=== PATIENT | male | born 1960 | race Caucasian/White ===

== ENCOUNTER 2022-12-17 09:59 | Day surgery (SDC) | payer OTHER, SELFPAY ==
[2022-12-13 14:27] VITALS: BMI 22.4
[2022-12-17] VITALS (7 sets, daily range): BP systolic 99–125; BP diastolic 67–92; PULSE 77–95; RESP 13–18; TEMP 36.4–37.2; O2SAT 92–100; BMI 22.4
--- NOTE | 2022-12-17 | DI.RAD.S_ITS ---
PROCEDURE: XR ANKLE LT MIN 3V INDICATIONS: LEFT ANKLE FRACTURE TECHNIQUE: 4 views of the ankle were acquired. COMPARISON: None. FINDINGS: Limited intraoperative fluoroscopic images of the left ankle demonstrate surgical fixation of distal fibular and tibial as well as soft tissue anchor across the distal syndesmosis. Alignment appears anatomic. IMPRESSION: Intraoperative fluoroscopic support for open reduction internal fixation of distal left ankle injury. No evidence for acute hardware complication. Dictated by: Bonilla Freeman M.D. on 12/17/2022 at 17:33 Approved by: Bonilla Freeman M.D. on 12/17/2022 at 17:35
[2022-12-17] MEDS: LACTATED RINGERS 1,000 ML 42 ML IV ×2 (10:45→13:26)
--- NOTE | 2022-12-17 11:28 | PM.PREOP ---
Pre-operative Note Interval Note History & Physical reviewed/Exam performed by Physician: Yes Changes to H&P: No
[2022-12-17] MEDS: CEFAZOLIN 2 GM/100 ML PREMIX 100 ML IV (12:00)
--- NOTE | 2022-12-17 12:33 | SUR.OPER ---
Supine on padded OR bed, head on pillow, arms secured on padded arm boards at <90 degrees abduction, legs uncrossed, safety belt at thigh, tape over blanket over lower right leg. [place] bolster under left flank, additional blanket risers under left arm and leg, secured into place.
[2022-12-17] MEDS: BUPIVACAINE 0.25% (PF) VIAL 30 ML INJ (12:55)
[2022-12-17] MEDS: BUPIVACAINE 0.25% W/ EPI 30 ML VIAL INJ (12:56)
[2022-12-17] MEDS: OXYCODONE/ACETAMINOPHEN 5/325 TABLET 1 TAB PO ×2 (13:59→14:36)
[2022-12-17] MEDS: ONDANSETRON 4 MG/2 ML INJ IV (14:36)
--- NOTE | 2022-12-17 17:30 | P.OP_ITS ---
Operative Date/Time/Diagnoses Date of procedure: 12/17/22 Time of procedure: 12:00 Pre-op diagnosis: Closed displaced Maisonneuve fracture left ankle Closed fracture posterior malleolus left tibia Post-op diagnosis: same Procedure & Clinicians Procedure: 1. ORIF syndesmosis ankle CPT code 42705 left 2. Partial excision bone tibia CPT code 23359-87 left 3. Closed treatment posterior malleolus without manipulation left CPT code 50189-61 Same procedure as scheduled: Yes Indications: The patient is a 62-year-old man sustained a displaced Maisonneuve fracture variant with posterior malleolar fracture. He was indicated for stabilization of his unstable fracture pattern. Risks were discussed including risks of conservative treatment and risks of surgery. The risks and benefits of the procedure have been discussed with the patient and given the opportunity to ask questions. The risks of surgery include but are not limited to infection, malunion, nonunion, persistence of pain, damage to nerves and blood vessels, posttraumatic arthritis, DVT, PE, cardiopulmonary complications and . The patient expressed a thorough understanding of the risks and benefits of surgery and has elected to proceed. Consent was signed in the office. Surgeon: Radha Irwin Click Yes if Unassisted: Yes Anesthesia Type: General and Local Operative Notes Findings: Syndesmotic injury. We displaced posterior malleolar fracture. With exception of 1 small intra-articular fragment displaced proximally 1 cm above the joint line abutting neurovascular bundle posteriorly. This was excised through a separate medial incision Closure Type: primary Specimen(s): none sent Prosthetic devices, grafts, tissues, transplants, or devices: 40 mm 3.5 screw, Arthrex Tightrope XP Arthrex Estimated Blood Loss (mL): 10 Blood products transfused: none Tourniquet time (min): 52 Procedure in detail: Patient was seen in the preoperative area the site of surgery was marked and informed consent confirmed. He was brought back to the operating room by the anesthesia team positioned supine on operative table. General anesthetic was administered. All bony prominences were well padded. A formal time-out procedure was performed confirming the patient's side and site of surgery administration of appropriate preoperative antibiotic. All were in agreement. Attention turned to the left lower extremity. Esmarch was used for exsanguination and the tourniquet was elevated to 250 mmHg. Curvilinear lateral incision was taken over the distal fibula to the level of the syndesmosis. This was taken carefully down through the skin subcutaneous tissue. The fibula was exposed. There was disruption of the syndesmosis. This was open reduced and then pinned with a K-wire and checked on intraoperative fluoroscopy. Then level just above the syndesmosis and another cm above that were marked out for the levels of the fixation devices. A drill was used to drill 4 cortices for the suture button device and this was placed from lateral to medial with the button flipped medially and then the suture button device secured. Before final tightening the wire holding syndesmotic reduction was the n backed out. And due to the Maisonneuve injury unknown posterior malleolar fracture additional tricortical 3.5 cortical screw was placed above this for additional stability. Attention was then turned medially to the ankle and a separate incision was made at the level of the displaced fragment posterior tibia was isolated and the sheath for the posterior tibialis tendon was then opened. The tendon was carefully retracted posteriorly and a pituitary was used to remove the loose fragment which was a sliver of articular posterior malleolus that was not repairable. This was excised as it was directly abutting the tendons and neurovascular bundle. Other than that the rest of the posterior malleolus was nondisplaced and was allowed to heal closed. Once this was completed the tourniquet was released. Hemostasis was achieved. The wounds were closed in layers in 2-0 Vicryl 4-0 Monocryl and 3-0 nylon suture. C-arm was brought in and confirmed appropriate hardware placement in AP, mortise and lateral planes. Additionally a stress examination confirmed stability of the mortise. Dressings were placed with Xeroform gauze Webril and a splint. The patient was woken from anesthesia and taken to the recovery room in good condition. There no immediate complications from this procedure. All counts were correct Complications: none Post-operative Condition: stable Disposition: PACU Plan for aftercare: Nonweightbearing or toe-touch for balance. Elevate above the heart level. Keep splint on. Follow up in 2 weeks for incision check. And placement of boot. Will be nonweightbearing for 6 weeks and then will advance 25% a week after the 6 week in a boot.
== END 2022-12-17 14:45 | disposition home or self-care (01) ==
PROVIDERS: PCP Family Medicine; Referring Provider Orthopaedic Surgery Foot and Ankle Surgery; Visit Provider Orthopaedic Surgery Foot and Ankle Surgery
PROC: (CPT 27640; principal; 2022-12-17 11:15)
DX: S82.862A Displaced Maisonneuve's fracture of left leg, initial encounter for closed fracture (principal); X50.1XXA Overexertion from prolonged static or awkward postures, initial encounter; Y92.89 Other specified places as the place of occurrence of the external cause
CPT/HCPCS: 27640; 27829; 73610; 76000; C1713; J0690; J1100; J1885; J2250; J2405; J2704; J3010; J3490